=== PATIENT | male | born 1985 | race Caucasian/White ===

== ENCOUNTER 2019-08-12 15:00 | Outpatient (CLI) | payer OTHER | END 2019-08-12 15:01 | disposition home or self-care (01) | LOC: SLEEPLAB 15:00 | PROVIDERS: ATTEND Family Medicine | DX: G47.33 Obstructive sleep apnea (adult) (pediatric) (principal); I10 Essential (primary) hypertension; R06.83 Snoring; R53.83 Other fatigue; R40.0 Somnolence; E66.9 Obesity, unspecified; Z68.37 Body mass index [BMI] 37.0-37.9, adult | CPT/HCPCS: 95806 ==

== ENCOUNTER 2022-06-18 12:24 | Outpatient (CLI) | payer BC | END 2022-06-18 12:25 | disposition home or self-care (01) | LOC: BICRAD 12:24 | PROVIDERS: ATTEND Family Medicine | DX: R19.7 Diarrhea, unspecified (principal); R50.9 Fever, unspecified | CPT/HCPCS: 71046 ==

== ENCOUNTER 2022-07-10 15:08 | Outpatient (CLI) | payer BC | END 2022-07-10 15:09 | disposition home or self-care (01) | LOC: BICRAD 15:08 | PROVIDERS: ATTEND Family Medicine | DX: R05.1 Acute cough (principal) | CPT/HCPCS: 71046 ==

== ENCOUNTER 2023-08-11 15:57 | Outpatient (CLI) | payer BC | END 2023-08-11 15:58 | disposition home or self-care (01) | LOC: BICRAD 15:57 | PROVIDERS: ATTEND Internal Medicine Rheumatology | DX: M13.0 Polyarthritis, unspecified (principal); R76.8 Other specified abnormal immunological findings in serum; Z87.891 Personal history of nicotine dependence; Z79.1 Long term (current) use of non-steroidal anti-inflammatories (NSAID) | CPT/HCPCS: 71046; 72170; 73565 ==